=== PATIENT | female | born 1955 | race Hispanic/Latino ===

== ENCOUNTER 2017-06-13 10:36 | Outpatient (CLI) | payer BC ==
--- NOTE | 2017-06-14 14:26 | MMO ---
BILATERAL MAMMOGRAMS: DATE: 06/13/17 HISTORY: Screening mammography. COMPARISON: 05/02/07. FINDINGS: Scattered fibroglandular densities are again demonstrated. No dominant mass or suspicious calcificati ons. The study was evaluated with the assistance of computer-aided detection. IMPRESSION: BIRADS 1: Negative Suggest routine follow-up. POS: ESTER
== END 2017-06-13 10:37 | disposition home or self-care (01) ==
LOC: SCSMAMMO 10:36
PROVIDERS: ATTEND Family Medicine
DX: Z12.31 Encounter for screening mammogram for malignant neoplasm of breast (principal)
CPT/HCPCS: 77067

== ENCOUNTER 2018-09-21 13:45 | Outpatient (CLI) | payer MEDICARE ==
--- NOTE | 2018-09-21 16:09 | BD ---
Exam: DEXA Bone Density 09/21/18 COMPARISON: None. HISTORY: 63-year-old postmenopausal female for screening. FINDINGS: Lumbar Spine: BMD (g/cm2) T-SCORE L1 0.838 -1.4 L2 0.836 -1.7 L3 0.770 -2.9 L4 0.735 -2.0 L1-L4 0.796 -2.3 Left Femoral Neck: 0.617 -2.1 Total proximal left Femur: 0.733 -1.7 Impression: Osteopenia. This patient has a ten year WHO fracture risk for a major osteoporotic fracture of 11% an d a hip fracture of 1.6%. POS: TPC
== END 2018-09-21 13:46 | disposition home or self-care (01) ==
LOC: BICMAMMO 13:45
PROVIDERS: ATTEND Internal Medicine
DX: Z13.820 Encounter for screening for osteoporosis (principal); M81.0 Age-related osteoporosis without current pathological fracture; M85.852 Other specified disorders of bone density and structure, left thigh
CPT/HCPCS: 77080

== ENCOUNTER 2020-12-06 17:45 | Emergency (ER) | payer MEDICARE, MEDICAID ==
[2020-12-06] MEDS ORDERED: HYDROcodone/Acetaminophen 10/325 mg Tablet ONE (19:24)
== END 2020-12-06 21:04 | disposition home or self-care (01) ==
LOC: ERS 17:45
DX: S39.012A Strain of muscle, fascia and tendon of lower back, initial encounter (principal); M62.830 Muscle spasm of back; E11.9 Type 2 diabetes mellitus without complications; I10 Essential (primary) hypertension; Z79.84 Long term (current) use of oral hypoglycemic drugs; Z79.899 Other long term (current) drug therapy
CPT/HCPCS: 72131

== ENCOUNTER 2021-02-18 10:59 | Observation (INO) | payer MEDICARE ==
[2021-02-18 12:50] LABS: #Basophils 0.1 thou/uL (0.0-0.2); #Eosinphils 0.2 thou/uL (0.0-0.7); #Lymphocytes 2.3 thou/uL (1.20-3.40); #Monocytes 0.5 thou/uL (0.11-0.59); #Neutrophils 3.3 thou/uL (1.40-6.50); %Basophils 0.9 % (0.0-1.0); %Eosinophils 3.4 % (0.0-10.0); %Lymphocytes 36.1 % (21.0-51.0); %Monocytes 7.3 % (0.0-10.0); %Neutrophils 52.3 % (42.0-75.0); Hemoglobin 10.9 g/dL (12.0-16.0); Mean Corpuscular HGB CONC 32.7 g/dL (32.0-36.0); Mean Corpuscular Hemoglobin 28.2 pg (27.0-31.0); Mean Corpuscular Volume 86.5 fL (78.0-98.0); Mean Platelet Volume 7.9 fL (7.4-10.4); Platelet Count 368 thou/uL (130-400); RBC Distribution Width 14.4 % (11.5-14.5); Red Blood Cell (RBC) Count 3.85 mill/uL (4.20-5.40); White Blood Cell (WBC) Count 6.3 thou/uL (4.8-10.8)
[2021-02-18 13:11] LABS: ALT (SGPT) 10 U/L (8-55); AST (SGOT) 18 U/L (5-34); Albumin 3.7 g/dL (3.4-4.8); Alkaline Phosphatase 77 U/L (40-110); Anion Gap 8 mmol/L (10-20); BUN (Urea Nitrogen) 17 mg/dL (9.8-20.1); Bilirubin, Total 0.3 mg/dL (0.2-1.2); Calc. Creatinine Clearance 0 mL/min (70-130); Calcium 9.5 mg/dL (7.8-10.44); Carbon Dioxide 29 mmol/L (23-31); Chloride 102 mmol/L (98-107); Globulin 3.2 g/dL (2.4-3.5); Glucose 188 mg/dL (80-115); Potassium 4.1 mmol/L (3.5-5.1); Protein, Total 6.9 g/dL (5.8-8.1); Sodium 135 mmol/L (136-145)
[2021-02-18 14:03] LABS: Bilirubin Negative (Negative); Blood, Urine Negative (Negative); Clarity Clear (Clear); Glucose, Urine (Dipstick) Normal (Negative); Ketone, Urine Negative (Negative); Leukocyte Negative Leu/uL (Negative); Nitrite Negative (Negative); Protein, Urine (Dipstick) Negative (Neg-Trace); Specific Gravity, Urine 1.007 (1.002-1.036); Urobilinogen Normal mg/dL (Less than 2)
[2021-02-18] MEDS ORDERED: Aspirin Chewable 81 MG TAB ONE (15:52)
[2021-02-18 16:19] LABS: Troponin I Less than 0.010 ng/mL (< 0.028)
[2021-02-18] MEDS ORDERED: hydrALAZINE 20 MG/ML VIAL SLOW IVP PRN (17:01)
[2021-02-18] MEDS ORDERED: Senokot S 8.6-50 MG TAB PO PRN (17:19)
[2021-02-18] MEDS ORDERED: HYDROcodone/Acetaminophen 7.5/325 mg Tablet PO PRN (17:19)
[2021-02-18] MEDS ORDERED: HYDROcodone/Acetaminophen 5/325 mg Tablet PO PRN (17:19)
[2021-02-18] MEDS ORDERED: Bisacodyl 5 MG TAB PO PRN (17:19)
[2021-02-18] MEDS ORDERED: Acetaminophen 325 MG TAB PO PRN (17:19)
[2021-02-18] MEDS ORDERED: hydrALAZINE 20 MG/ML VIAL ONE (17:30)
[2021-02-18] MEDS ORDERED: Enoxaparin Sodium 40 MG/0.4 ML SYRINGE SC SCH (17:30)
[2021-02-18] MEDS ORDERED: Losartan 25 MG TAB PO SCH (17:45)
[2021-02-18] MEDS ORDERED: Nitroglycerin 0.4 MG TAB (25 Tab Bottle) SL PRN (17:50)
[2021-02-18] MEDS ORDERED: Dextrose 5% in Water 1,000 ML IV PRN (18:03)
[2021-02-18] MEDS ORDERED: HumaLOG 300 UNITS/3 ML VIAL SC PRN ×2 (18:03)
[2021-02-18] MEDS ORDERED: Dextrose 50% Abboject 50 ML SYRINGE SLOW IVP PRN (18:03)
[2021-02-18 18:39] LABS: SARS-CoV-2 NAA Rapid Test Not Detected (NotDetected)
[2021-02-18] MEDS ORDERED: Enoxaparin Sodium 40 MG/0.4 ML SYRINGE ONE (19:26)
[2021-02-18 19:47] LABS: Troponin I 0.012 ng/mL (< 0.028)
[2021-02-18] MEDS ORDERED: cloNIDine 0.1 MG TAB PO SCH (21:15)
[2021-02-18] MEDS: Famotidine/PF 20 mg/2ml Vial SLOW IVP SCH (21:30)
[2021-02-19 06:13] LABS: #Basophils 0.1 thou/uL (0.0-0.2); #Eosinphils 0.2 thou/uL (0.0-0.7); #Lymphocytes 2.6 thou/uL (1.20-3.40); #Monocytes 0.5 thou/uL (0.11-0.59); #Neutrophils 2.6 thou/uL (1.40-6.50); %Basophils 1.1 % (0.0-1.0); %Eosinophils 3.5 % (0.0-10.0); %Lymphocytes 43.3 % (21.0-51.0); %Monocytes 8.6 % (0.0-10.0); %Neutrophils 43.5 % (42.0-75.0); Hemoglobin 10.8 g/dL (12.0-16.0); Mean Corpuscular HGB CONC 33.2 g/dL (32.0-36.0); Mean Corpuscular Hemoglobin 28.9 pg (27.0-31.0); Mean Corpuscular Volume 87.1 fL (78.0-98.0); Mean Platelet Volume 7.8 fL (7.4-10.4); Platelet Count 342 thou/uL (130-400); RBC Distribution Width 14.6 % (11.5-14.5); Red Blood Cell (RBC) Count 3.73 mill/uL (4.20-5.40)
[2021-02-19 06:37] LABS: ALT (SGPT) 8 U/L (8-55); AST (SGOT) 14 U/L (5-34); Albumin 3.5 g/dL (3.4-4.8); Alkaline Phosphatase 66 U/L (40-110); Anion Gap 9 mmol/L (10-20); BUN (Urea Nitrogen) 17 mg/dL (9.8-20.1); Bilirubin, Total 0.4 mg/dL (0.2-1.2); Calc. Creatinine Clearance 83 mL/min (70-130); Calcium 9.3 mg/dL (7.8-10.44); Carbon Dioxide 27 mmol/L (23-31); Cardiac Risk 3.7 (Less than 4.5); Chloride 106 mmol/L (98-107); Cholesterol 184 mg/dl (< 200 Desired); Globulin 2.6 g/dL (2.4-3.5); Glucose 164 mg/dL (80-115); HDL Cholesterol 50 mg/dL (>60 Neg Risk); LDL Cholesterol, Calculated 117 mg/dL; Potassium 4.2 mmol/L (3.5-5.1); Protein, Total 6.1 g/dL (5.8-8.1); Sodium 138 mmol/L (136-145); Triglycerides 86 mg/dL (Less than 150)
[2021-02-19 06:41] LABS: Hemoglobin A1c 8.2 % (4.0-6.0)
[2021-02-19] MEDS ORDERED: FLU VACC QS2021-22(65YR UP)/PF 240 MCG/0.7 ML SYRINGE IM ONE (09:00)
[2021-02-19] MEDS: Enoxaparin Sodium 40 MG/0.4 ML SYRINGE SC SCH (10:00)
[2021-02-19] MEDS: Famotidine/PF 20 mg/2ml Vial SLOW IVP SCH ×2 (10:00→10:03)
[2021-02-19] MEDS: Hydroxychloroquine Sulfate 200 MG TAB PO SCH (10:04)
[2021-02-19] MEDS: HumuLIN 70/30 (300 UNITS/3 ML VIAL) SC SCH (10:06)
[2021-02-19] MEDS ORDERED: Famotidine/PF 20 mg/2ml Vial SLOW IVP SCH (23:00)
[2021-02-20 08:39] VITALS: BMI 31.6
[2021-02-20] MEDS: Famotidine/PF 20 mg/2ml Vial SLOW IVP SCH (09:10)
[2021-02-20] MEDS: HumuLIN 70/30 (300 UNITS/3 ML VIAL) SC SCH (09:11)
[2021-02-20] MEDS: Enoxaparin Sodium 40 MG/0.4 ML SYRINGE SC SCH (09:11)
[2021-02-20] MEDS: Hydroxychloroquine Sulfate 200 MG TAB PO SCH (09:12)
[2021-02-20 11:56] VITALS: BP 142/61; TEMP 98.3
== END 2021-02-20 13:25 | disposition home or self-care (01) ==
LOC: ERS 10:59 → ERHOLD 16:48 → 2NO 20:04
PROVIDERS: ADMIT Internal Medicine; ATTEND Internal Medicine
DX: R07.81 Pleurodynia (principal); I10 Essential (primary) hypertension; E11.65 Type 2 diabetes mellitus with hyperglycemia; R51.9 Headache, unspecified; R42 Dizziness and giddiness; Z20.822 Contact with and (suspected) exposure to COVID-19; Z79.4 Long term (current) use of insulin; Z79.84 Long term (current) use of oral hypoglycemic drugs; Z79.899 Other long term (current) drug therapy; Z88.6 Allergy status to analgesic agent
CPT/HCPCS: 70450; 71045; 80053 ×2; 80061; 81003; 82962 ×3; 83036; 84484 ×2; 85025 ×2; 93005; 93306; 96372 ×3; 96374; 96375; 96376; 99285; G0378 ×4; U0002; 36415; 36416; J0360; J1650; J1815; S0028

== ENCOUNTER 2022-12-13 03:58 | Inpatient (IN) | payer OTHER ==
[2022-12-13 04:40] LABS: #Eosinphils 0.3 thou/uL (0.0-0.7); #Monocytes 0.8 thou/uL (0.11-0.59); #Neutrophils 6.9 thou/uL (1.40-6.50); %Basophils 0.4 % (0.0-1.0); %Eosinophils 2.6 % (0.0-10.0); %Lymphocytes 26.8 % (21.0-51.0); %Monocytes 7.4 % (0.0-10.0); %Neutrophils 62.3 % (42.0-75.0); Hematocrit 32.7 % (36.0-47.0); Hemoglobin 10.9 g/dL (12.0-16.0); Mean Corpuscular HGB CONC 33.3 g/dL (32.0-36.0); Mean Corpuscular Hemoglobin 29.7 pg (27.0-31.0); Mean Corpuscular Volume 89.1 fl (78.0-98.0); Mean Platelet Volume 10.6 fL (7.4-10.4); Platelet Count 390 10x3/uL (130-400); RBC Distribution Width 13.8 % (11.5-14.5); Red Blood Cell (RBC) Count 3.67 mill/uL (4.20-5.40)
[2022-12-13] MEDS ORDERED: Morphine 4 MG/ML VIAL ONE (04:41)
[2022-12-13 04:54] LABS: Prothrombin Time 13.5 sec (12.0-14.7)
[2022-12-13 04:55] LABS: PTT 34.1 sec (22.9-36.1)
[2022-12-13 05:16] LABS: ALT (SGPT) 9 U/L (8-55); AST (SGOT) 17 U/L (5-34); Albumin 4.4 g/dL (3.4-4.8); Alkaline Phosphatase 90 U/L (40-110); Anion Gap 14 mmol/L (10-20); BUN (Urea Nitrogen) 19 mg/dL (9.8-20.1); Bilirubin, Total 0.4 mg/dL (0.2-1.2); Calc. Creatinine Clearance 0 mL/min (70-130); Calcium 9.2 mg/dL (7.8-10.44); Carbon Dioxide 26 mmol/L (23-31); Chloride 99 mmol/L (98-107); Estimated GFR 76; Globulin 2.7 g/dL (2.4-3.5); Glucose 162 mg/dL (80-115); Potassium 4.6 mmol/L (3.5-5.1); Protein, Total 7.1 g/dL (5.8-8.1); Sodium 134 mmol/L (136-145)
[2022-12-13 05:21] LABS: Troponin I 0.015 ng/mL (< 0.028)
[2022-12-13] MEDS ORDERED: Insulin Regular 300 UNITS/3 ML VIAL SC PRN (09:19)
[2022-12-13] MEDS ORDERED: Glucagon 1 MG/ML KIT IM PRN (09:19)
[2022-12-13] MEDS ORDERED: Dextrose 50% Abboject 50 ML SYRINGE SLOW IVP PRN (09:19)
[2022-12-13] MEDS ORDERED: Dextrose 5% in Water 1,000 ML IV PRN (09:19)
[2022-12-13] MEDS ORDERED: Nitroglycerin 0.4 MG TAB (25 Tab Bottle) SL PRN (09:20)
[2022-12-13] MEDS ORDERED: Ondansetron PF 4 MG/2 ML Vial IVP PRN (09:21)
[2022-12-13] MEDS ORDERED: Ondansetron ODT 4 MG TAB PO PRN (09:21)
[2022-12-13] MEDS ORDERED: Calcium Carbonate 500 MG ChewTAB PO PRN (09:21)
[2022-12-13] MEDS ORDERED: Sodium Chloride 0.9% 500 ML IV SCH (09:30)
[2022-12-13] MEDS ORDERED: Regadenoson 0.4 MG/5 ML SYRINGE ONE (09:57)
[2022-12-13 11:31] LABS: Troponin I Less than 0.010 ng/mL (< 0.028)
[2022-12-13] MEDS ORDERED: Ketorolac Tromethamine 30 MG/ML VIAL IVP SCH (12:00)
[2022-12-13] MEDS ORDERED: Iopamidol 370 76% 100 ML VIAL ONE (13:22)
[2022-12-13] MEDS ORDERED: Ketorolac Tromethamine 30 MG/ML VIAL ONE (14:10)
[2022-12-13 14:30] VITALS: BMI 31.2
[2022-12-13] MEDS: Insulin Regular 300 UNITS/3 ML VIAL SC PRN (18:13)
[2022-12-13] MEDS ORDERED: Losartan 25 MG TAB PO SCH (20:00)
[2022-12-13] MEDS ORDERED: Atenolol 50 MG TAB PO SCH (20:00)
[2022-12-13] MEDS ORDERED: Famotidine 20 MG TAB PO SCH (21:00)
[2022-12-14] MEDS: Cyclobenzaprine 10 MG TAB PO PRN ×2 (00:55→14:43)
[2022-12-14] MEDS ORDERED: Amlodipine 5 MG TAB PO SCH (09:00)
[2022-12-14] MEDS ORDERED: Aspirin 325 mg Enteric Coated Tablet PO SCH (09:00)
[2022-12-14] MEDS ORDERED: Atenolol 50 MG TAB PO SCH (09:00)
[2022-12-14] MEDS: Aspirin 81 mg Enteric Coated Tablet PO SCH (09:00)
[2022-12-14] MEDS: HumuLIN 70/30 100 Unit/ ml 10 ml Vial SC SCH (09:00)
[2022-12-14] MEDS: Famotidine 20 MG TAB PO SCH (09:00)
[2022-12-14] MEDS ORDERED: Losartan 25 MG TAB PO SCH (09:00)
[2022-12-14] MEDS ORDERED: Iopamidol 370 76% 100 ML VIAL ONE (09:20)
[2022-12-14] MEDS ORDERED: Communication Order-Pharmacy FS SCH (11:45)
[2022-12-14] MEDS ORDERED: fentaNYL 50 mcg/mL 1 mL Vial ONE (11:49)
[2022-12-14] MEDS ORDERED: Nitroglycerin 50 MG/250 ML BOT 0 ML ONE (11:50)
[2022-12-14] MEDS ORDERED: Midazolam HCl 2 mg/2 ml Vial ONE (11:50)
[2022-12-14] MEDS ORDERED: Lidocaine 1% (PF) 30 ML VIAL ONE (11:50)
[2022-12-14] MEDS ORDERED: Heparin 10,000 UNITS/ 10 ML VIAL ONE (11:50)
[2022-12-14] MEDS: Insulin Regular 300 UNITS/3 ML VIAL SC PRN (17:44)
[2022-12-14] MEDS: Ketorolac Tromethamine 10 MG TAB PO PRN (18:27)
[2022-12-14] MEDS: Atenolol 50 MG TAB PO SCH (20:23)
[2022-12-14] MEDS: Atorvastatin Calcium 40 MG TAB PO SCH (20:23)
[2022-12-14] MEDS: Losartan 25 MG TAB PO SCH (20:23)
[2022-12-15] MEDS ORDERED: Amlodipine 10 MG TAB PO SCH (09:00)
[2022-12-15] MEDS: Insulin Regular 300 UNITS/3 ML VIAL SC PRN ×3 (09:20→17:33)
[2022-12-15] MEDS: Aspirin 81 mg Enteric Coated Tablet PO SCH (09:22)
[2022-12-15] MEDS: Famotidine 20 MG TAB PO SCH (09:22)
[2022-12-15] MEDS: HumuLIN 70/30 100 Unit/ ml 10 ml Vial SC SCH (10:17)
[2022-12-15] MEDS: Ketorolac Tromethamine 10 MG TAB PO PRN (10:26)
[2022-12-15] MEDS: Atorvastatin Calcium 40 MG TAB PO SCH (20:09)
[2022-12-15] MEDS: Losartan 25 MG TAB PO SCH (20:09)
[2022-12-15] MEDS: Atenolol 50 MG TAB PO SCH (20:10)
[2022-12-16] MEDS ORDERED: CEFAZOLIN 2 GM in Sodium Chloride 0.9% 100 ML IVPB SCH (06:00)
[2022-12-16] MEDS ORDERED: Albumin 5% 500 ML ONE (06:38)
[2022-12-16] MEDS ORDERED: Heparin 10,000 UNITS/1 ML VIAL 30,000 UNITS in Sodium Chloride 0.9% 1,000 ML FS SCH (06:45)
[2022-12-16] MEDS ORDERED: Midazolam HCl 2 mg/2 ml Vial ONE (08:21)
[2022-12-16] MEDS ORDERED: Fentanyl 250 MCG/5 ML VIAL ONE (08:21)
[2022-12-16] MEDS ORDERED: CEFAZOLIN 2 GM VIAL ONE (08:22)
[2022-12-16] MEDS ORDERED: Sodium Chloride 0.9% 100 ML ONE (08:23)
[2022-12-16] MEDS ORDERED: Heparin 5,000 UNITS/ML VIAL ONE (08:30)
[2022-12-16] MEDS ORDERED: Calcium Chloride 1 GM/10 ML Abboject SYRINGE ONE (08:30)
[2022-12-16] MEDS ORDERED: Vancomycin 1 GM VIAL ONE (08:30)
[2022-12-16] MEDS ORDERED: Thrombin 5000 UNITS/5 ML VIAL ONE (08:30)
[2022-12-16] MEDS ORDERED: PROPOFOL 200 MG/20 ML VIAL ONE (08:30)
[2022-12-16] MEDS ORDERED: Albumin 25% 25 GM/100 ML BOT ONE (08:30)
[2022-12-16] MEDS ORDERED: Mannitol 12.5 GM/50 ML ONE (08:30)
[2022-12-16] MEDS ORDERED: Cardioplegic Soln 1,000 ML BAG ONE (08:30)
[2022-12-16] MEDS ORDERED: Papaverine 60 MG/2 ML VIAL ONE (08:30)
[2022-12-16] MEDS ORDERED: Aminocaproic Acid 5 GM/20 ML VIAL ONE (08:30)
[2022-12-16] MEDS ORDERED: Vecuronium 10 MG VIAL ONE (08:30)
[2022-12-16] MEDS ORDERED: Sodium Bicarb 50 MEQ/50 ML VIAL ONE (08:30)
[2022-12-16] MEDS ORDERED: Protamine Sulfate 250 MG/25 ML VIAL ONE (08:30)
[2022-12-16] MEDS ORDERED: Heparin 30,000 units/30 ml VIAL ONE (08:30)
[2022-12-16] MEDS ORDERED: Insulin Regular 300 UNITS/3 ML VIAL ONE (09:40)
[2022-12-16 12:20] LABS: Actual Bicarbonate (HCO3a) 22.8 mEq/L (22-28); Base Excess (BEa) -0.9 mEq/L (-2.0 to +3.0); Calcium, Ionized (arterial) 1.13 mmol/L (1.12-1.30); Carboxyhemoglobin (COHb) 0.3 gm% (0.0-3.0); Hematocrit-ABG 29 % (36.0-47.0); Hemoglobin (Hb) 9.7 g/dL (12.0-16.0); O2 Tension (PaO2), arterial 95.1 mmHg (> 80.0); Potassium - ABG Lab 3.88 mmol/L (3.70-5.30); pH, Arterial 7.445 (7.35-7.45)
[2022-12-16] MEDS ORDERED: Ipratropium/Albuterol 3 ML NEB NEB PRN (12:22)
[2022-12-16] MEDS ORDERED: Bisacodyl 5 MG TAB PO PRN (12:22)
[2022-12-16] MEDS ORDERED: fentaNYL 50 mcg/mL 1 mL Vial SLOW IVP PRN (12:22)
[2022-12-16] MEDS ORDERED: HYDROcodone/Acetaminophen 5/325 mg Tablet PO PRN (12:22)
[2022-12-16] MEDS ORDERED: hydrALAZINE 20 MG/ML VIAL SLOW IVP PRN (12:22)
[2022-12-16] MEDS ORDERED: NOREPINEPHRINE 8 MG/250 ML-D5W 250 ML IVPB PRN (12:22)
[2022-12-16] MEDS ORDERED: Hetastarch 6% 500 ML 500 ML IVPB PRN (12:22)
[2022-12-16] MEDS ORDERED: niCARdipine 25 MG in Sodium Chloride 0.9% 250 ML 250 ML IVPB PRN (12:22)
[2022-12-16] MEDS ORDERED: Post-Op Insulin Drip Protocol IVPB ONE (12:22)
[2022-12-16] MEDS ORDERED: Bisacodyl 10 MG SUPP PR PRN (12:22)
[2022-12-16] MEDS ORDERED: Ondansetron PF 4 MG/2 ML Vial IVP PRN (12:22)
[2022-12-16] MEDS ORDERED: Guaifenesin DM 100-10/5 ML UDCUP PO PRN (12:22)
[2022-12-16] MEDS ORDERED: DOPamine 400 MG/D5W 250 ML 250 ML IVPB PRN (12:22)
[2022-12-16] MEDS ORDERED: Potassium Chloride 20 MEQ/100 ML PREMIX BAG IVPB PRN (12:22)
[2022-12-16] MEDS ORDERED: Nitroglycerin 50 MG/250 ML BOT 250 ML IVPB PRN (12:22)
[2022-12-16] MEDS ORDERED: Mag-Al 1200 mg/1200 mg/30 ML UDCUP PO PRN (12:22)
[2022-12-16] MEDS ORDERED: Acetaminophen 325 MG TAB PO PRN (12:22)
[2022-12-16 12:23] LABS: Puncture Site Arterial Line
[2022-12-16 12:40] LABS: #Eosinphils 0.2 thou/uL (0.0-0.7); #Monocytes 0.6 thou/uL (0.11-0.59); #Neutrophils 10.1 thou/uL (1.40-6.50); %Basophils 0.2 % (0.0-1.0); %Eosinophils 1.7 % (0.0-10.0); %Monocytes 4.6 % (0.0-10.0); Hematocrit 28.4 % (36.0-47.0); Hemoglobin 9.2 g/dL (12.0-16.0); Mean Corpuscular HGB CONC 32.4 g/dL (32.0-36.0); Mean Corpuscular Hemoglobin 28.8 pg (27.0-31.0); Mean Platelet Volume 10.6 fL (7.4-10.4); Platelet Count 248 10x3/uL (130-400); RBC Distribution Width 13.8 % (11.5-14.5); Red Blood Cell (RBC) Count 3.19 mill/uL (4.20-5.40)
[2022-12-16] MEDS: Lactated Ringer's 1,000 ML IV SCH (12:44)
[2022-12-16] MEDS: Morphine 2 MG/ML VIAL SLOW IVP PRN ×2 (12:44→16:35)
[2022-12-16] MEDS ORDERED: HUMULIN R 100 UNITS in Sodium Chloride 0.9% 100 ML IVPB SCH (12:45)
[2022-12-16] MEDS ORDERED: Glucagon 1 MG/ML KIT SC PRN (12:45)
[2022-12-16] MEDS ORDERED: Dextrose 5% in Water 1,000 ML IV PRN (12:45)
[2022-12-16] MEDS ORDERED: Insulin Regular 300 UNITS/3 ML VIAL SC PRN (12:45)
[2022-12-16] MEDS ORDERED: Dextrose 50% Abboject 50 ML SYRINGE SLOW IVP PRN (12:45)
[2022-12-16 12:55] LABS: INR-International Normal Ratio 1.3; PTT 34.4 sec (22.9-36.1)
[2022-12-16] MEDS: fentaNYL 50 mcg/mL 1 mL Vial SLOW IVP PRN ×2 (12:58→20:33)
[2022-12-16 13:04] LABS: Anion Gap 12 mmol/L (10-20); BUN (Urea Nitrogen) 15 mg/dL (9.8-20.1); Calc. Creatinine Clearance 91 mL/min (70-130); Carbon Dioxide 22 mmol/L (23-31); Chloride 109 mmol/L (98-107); Estimated GFR 92; Glucose 78 mg/dL (80-115); Potassium 3.9 mmol/L (3.5-5.1); Sodium 139 mmol/L (136-145)
[2022-12-16] MEDS: CEFAZOLIN 2 GM in Sodium Chloride 0.9% 100 ML IVPB SCH ×2 (15:26→23:28)
[2022-12-16 16:06] LABS: Actual Bicarbonate (HCO3a) 21.9 mEq/L (22-28); Base Excess (BEa) -3.1 mEq/L (-2.0 to +3.0); CO2 Tension 38.6 mmHg (35.0-45.0); Calcium, Ionized (arterial) 1.15 mmol/L (1.12-1.30); Carboxyhemoglobin (COHb) 0.1 gm% (0.0-3.0); Hematocrit-ABG 32 % (36.0-47.0); Potassium - ABG Lab 3.95 mmol/L (3.70-5.30); pH, Arterial 7.371 (7.35-7.45)
[2022-12-16 16:13] LABS: Puncture Site Arterial Line
[2022-12-16] MEDS: Ketorolac Tromethamine 30 MG/ML VIAL IVP SCH ×2 (17:07→23:27)
[2022-12-16 18:29] LABS: Hematocrit 31.5 % (36.0-47.0)
[2022-12-16 18:51] LABS: Potassium 4.4 mmol/L (3.5-5.1)
[2022-12-16] MEDS: Famotidine/PF 20 mg/2ml Vial SLOW IVP SCH (20:16)
[2022-12-16] MEDS: HYDROcodone/Acetaminophen 5/325 mg Tablet PO PRN (20:17)
[2022-12-16] MEDS ORDERED: Atorvastatin Calcium 20 MG TAB PO SCH (21:00)
[2022-12-17] MEDS: Lactated Ringer's 1,000 ML IV SCH (01:05)
[2022-12-17 04:35] LABS: #Eosinphils 0.2 thou/uL (0.0-0.7); #Monocytes 1.2 thou/uL (0.11-0.59); #Neutrophils 10.7 thou/uL (1.40-6.50); %Basophils 0.3 % (0.0-1.0); %Eosinophils 1.3 % (0.0-10.0); %Lymphocytes 13.4 % (21.0-51.0); %Monocytes 8.4 % (0.0-10.0); %Neutrophils 76.1 % (42.0-75.0); Hemoglobin 9.1 g/dL (12.0-16.0); Mean Corpuscular HGB CONC 32.5 g/dL (32.0-36.0); Mean Corpuscular Hemoglobin 29.3 pg (27.0-31.0); Mean Platelet Volume 10.9 fL (7.4-10.4); Platelet Count 298 10x3/uL (130-400); RBC Distribution Width 14.7 % (11.5-14.5); Red Blood Cell (RBC) Count 3.11 mill/uL (4.20-5.40)
[2022-12-17 05:02] LABS: Anion Gap 12 mmol/L (10-20); BUN (Urea Nitrogen) 17 mg/dL (9.8-20.1); Calc. Creatinine Clearance 77 mL/min (70-130); Calcium 8.1 mg/dL (7.8-10.44); Carbon Dioxide 22 mmol/L (23-31); Chloride 109 mmol/L (98-107); Estimated GFR 75; Glucose 93 mg/dL (80-115); Potassium 4.1 mmol/L (3.5-5.1); Sodium 139 mmol/L (136-145)
[2022-12-17] MEDS: Ketorolac Tromethamine 30 MG/ML VIAL IVP SCH ×4 (06:04→23:43)
[2022-12-17] MEDS ORDERED: Atorvastatin Calcium 20 MG TAB PO SCH (07:36)
[2022-12-17] MEDS: CEFAZOLIN 2 GM in Sodium Chloride 0.9% 100 ML IVPB SCH (07:38)
[2022-12-17] MEDS: Aspirin Chewable 81 MG TAB PO SCH (07:39)
[2022-12-17] MEDS: Famotidine/PF 20 mg/2ml Vial SLOW IVP SCH (07:40)
[2022-12-17] MEDS ORDERED: Dextrose 5% in Water 1,000 ML IV PRN (07:40)
[2022-12-17] MEDS: Polyethylene Glycol 3350 17 GM Packet PO SCH (07:40)
[2022-12-17] MEDS ORDERED: Dextrose 50% Abboject 50 ML SYRINGE SLOW IVP PRN (07:40)
[2022-12-17] MEDS ORDERED: Glucagon 1 MG/ML KIT IM PRN (07:40)
[2022-12-17] MEDS: HumuLIN 70/30 100 Unit/ ml 10 ml Vial SC SCH (09:56)
[2022-12-17] MEDS: glipiZIDE 5 MG TAB PO SCH (11:33)
[2022-12-17] MEDS: HumaLOG 300 UNITS/3 ML VIAL SC PRN ×2 (11:43→16:41)
[2022-12-17] MEDS ORDERED: Insulin Glargine 30 UNITS/0.3 ML VIAL SC PRN (12:33)
[2022-12-17] MEDS: Atorvastatin Calcium 40 MG TAB PO SCH (21:02)
[2022-12-17] MEDS: Famotidine 20 MG TAB PO SCH (21:03)
[2022-12-18] MEDS: Ketorolac Tromethamine 30 MG/ML VIAL IVP SCH ×3 (06:28→17:26)
[2022-12-18] MEDS: HumaLOG 300 UNITS/3 ML VIAL SC PRN (06:38)
[2022-12-18] MEDS ORDERED: Furosemide 20 MG TAB PO SCH (09:00)
[2022-12-18] MEDS: Famotidine 20 MG TAB PO SCH ×2 (09:20→21:05)
[2022-12-18] MEDS: Metoprolol Tartrate 25 MG TAB PO SCH ×2 (09:20→21:06)
[2022-12-18] MEDS: Aspirin Chewable 81 MG TAB PO SCH (09:20)
[2022-12-18] MEDS: Polyethylene Glycol 3350 17 GM Packet PO SCH (09:21)
[2022-12-18] MEDS: HumuLIN 70/30 100 Unit/ ml 10 ml Vial SC SCH (09:21)
[2022-12-18] MEDS ORDERED: diphenhydrAMINE 25 MG CAP PO PRN (10:15)
[2022-12-18] MEDS ORDERED: Artificial Tear Sol 15 ML BOT EA EYE PRN (10:15)
[2022-12-18] MEDS ORDERED: Nitroglycerin 0.4 MG TAB (25 Tab Bottle) SL PRN (10:15)
[2022-12-18] MEDS ORDERED: Guaifenesin DM 100-10/5 ML UDCUP PO PRN (10:15)
[2022-12-18] MEDS ORDERED: Mineral Oil ENEMA PR PRN (10:15)
[2022-12-18] MEDS ORDERED: Bisacodyl 5 MG TAB PO PRN (10:15)
[2022-12-18] MEDS ORDERED: Zolpidem Tartrate 5 MG TAB PO PRN (10:15)
[2022-12-18] MEDS ORDERED: Bisacodyl 10 MG SUPP PR PRN (10:15)
[2022-12-18] MEDS ORDERED: Milk Of Magnesia 30 ML UDCUP PO PRN (10:15)
[2022-12-18] MEDS ORDERED: Mag-Al 1200 mg/1200 mg/30 ML UDCUP PO PRN (10:15)
[2022-12-18] MEDS: Potassium Chloride 10 MEQ TAB PO SCH (10:57)
[2022-12-18] MEDS: glipiZIDE 5 MG TAB PO SCH (11:49)
[2022-12-18] MEDS: Atorvastatin Calcium 40 MG TAB PO SCH (21:05)
[2022-12-19] MEDS: Ketorolac Tromethamine 30 MG/ML VIAL IVP SCH ×3 (00:22→05:38)
[2022-12-19] MEDS ORDERED: Losartan 25 MG TAB PO SCH (09:00)
[2022-12-19] MEDS: Furosemide 40 MG TAB PO SCH (09:22)
[2022-12-19] MEDS: Polyethylene Glycol 3350 17 GM Packet PO SCH (09:22)
[2022-12-19] MEDS: Potassium Chloride 10 MEQ TAB PO SCH (09:22)
[2022-12-19] MEDS: Aspirin Chewable 81 MG TAB PO SCH (09:23)
[2022-12-19] MEDS: Losartan 25 MG TAB PO SCH (09:23)
[2022-12-19] MEDS: Famotidine 20 MG TAB PO SCH ×2 (09:23→20:49)
[2022-12-19] MEDS: HumuLIN 70/30 100 Unit/ ml 10 ml Vial SC SCH (09:28)
[2022-12-19] MEDS: glipiZIDE 5 MG TAB PO SCH (12:43)
[2022-12-19] MEDS: HumaLOG 300 UNITS/3 ML VIAL SC PRN (15:57)
[2022-12-19] MEDS ORDERED: Ketorolac Tromethamine 30 MG/ML VIAL IVP SCH (20:45)
[2022-12-19] MEDS: Atorvastatin Calcium 40 MG TAB PO SCH (20:49)
[2022-12-20 04:16] LABS: #Eosinphils 0.5 thou/uL (0.0-0.7); #Monocytes 0.8 thou/uL (0.11-0.59); #Neutrophils 6.4 thou/uL (1.40-6.50); %Basophils 0.4 % (0.0-1.0); %Eosinophils 4.7 % (0.0-10.0); %Lymphocytes 22.7 % (21.0-51.0); %Monocytes 7.6 % (0.0-10.0); %Neutrophils 63.8 % (42.0-75.0); Hematocrit 29.8 % (36.0-47.0); Hemoglobin 9.6 g/dL (12.0-16.0); Mean Corpuscular HGB CONC 32.2 g/dL (32.0-36.0); Mean Corpuscular Hemoglobin 29.4 pg (27.0-31.0); Mean Corpuscular Volume 91.1 fl (78.0-98.0); Mean Platelet Volume 10.6 fL (7.4-10.4); Platelet Count 368 10x3/uL (130-400); RBC Distribution Width 13.8 % (11.5-14.5); Red Blood Cell (RBC) Count 3.27 mill/uL (4.20-5.40); White Blood Cell (WBC) Count 10.1 10x3/uL (4.8-10.8)
[2022-12-20 04:49] LABS: Anion Gap 15 mmol/L (10-20); BUN (Urea Nitrogen) 12 mg/dL (9.8-20.1); Calc. Creatinine Clearance 82 mL/min (70-130); Calcium 8.4 mg/dL (7.8-10.44); Carbon Dioxide 23 mmol/L (23-31); Chloride 101 mmol/L (98-107); Estimated GFR 81; Glucose 145 mg/dL (80-115); Sodium 135 mmol/L (136-145)
[2022-12-20 08:30] VITALS: BP 189/81; TEMP 99.4
[2022-12-20] MEDS: Polyethylene Glycol 3350 17 GM Packet PO SCH (08:50)
[2022-12-20] MEDS: Losartan 25 MG TAB PO SCH (08:51)
[2022-12-20] MEDS: Aspirin Chewable 81 MG TAB PO SCH (08:51)
[2022-12-20] MEDS: HYDROcodone/Acetaminophen 5/325 mg Tablet PO PRN (08:51)
[2022-12-20] MEDS: Famotidine 20 MG TAB PO SCH (08:52)
[2022-12-20] MEDS: Furosemide 40 MG TAB PO SCH (08:53)
[2022-12-20] MEDS: Potassium Chloride 10 MEQ TAB PO SCH (08:53)
[2022-12-20] MEDS: HumuLIN 70/30 100 Unit/ ml 10 ml Vial SC SCH (08:54)
== END 2022-12-20 13:00 | disposition home or self-care (01) | DRG 236 ==
LOC: ERS 03:58 → ERHOLD 08:04 → 2SW 13:16 → OBSVTOIN 12-15 09:55 → CCU 12-16 10:22 → 2NO 12-18 21:38
PROVIDERS: ADMIT Internal Medicine; ATTEND Internal Medicine
PROC: 021109W Bypass Coronary Artery, Two Arteries from Aorta with Autologous Venous Tissue, Open Approach (ICD-10-PCS; principal; 2022-12-16)
PROC: 06BP0ZZ Excision of Right Saphenous Vein, Open Approach (ICD-10-PCS; 2022-12-16)
PROC: 02100Z9 Bypass Coronary Artery, One Artery from Left Internal Mammary, Open Approach (ICD-10-PCS; 2022-12-16)
PROC: 02L70CK Occlusion of Left Atrial Appendage with Extraluminal Device, Open Approach (ICD-10-PCS; 2022-12-16)
DX: I25.10 Atherosclerotic heart disease of native coronary artery without angina pectoris (principal); I12.9 Hypertensive chronic kidney disease with stage 1 through stage 4 chronic kidney disease, or unspecified chronic kidney disease; I16.0 Hypertensive urgency; D63.1 Anemia in chronic kidney disease; E78.5 Hyperlipidemia, unspecified; K21.9 Gastro-esophageal reflux disease without esophagitis; Z88.8 Allergy status to other drugs, medicaments and biological substances; Z90.710 Acquired absence of both cervix and uterus; Z90.49 Acquired absence of other specified parts of digestive tract; Z83.3 Family history of diabetes mellitus; Z82.49 Family history of ischemic heart disease and other diseases of the circulatory system; Z79.84 Long term (current) use of oral hypoglycemic drugs; Z79.899 Other long term (current) drug therapy; E66.9 Obesity, unspecified; Z68.32 Body mass index [BMI] 32.0-32.9, adult; Z79.4 Long term (current) use of insulin; N18.2 Chronic kidney disease, stage 2 (mild); E11.22 Type 2 diabetes mellitus with diabetic chronic kidney disease
CPT/HCPCS: 36415; 36416; 36430; 71045; 71275; 78452; 80048; 80053; 82805; 82947; 83880; 84484; 85025; 85610; 85730; 86850; 86900; 86901; 93005; 93010; 93017; 93458; 93798; 94002; 94760; 96374; 96375; 97139; 99152; A4311; A9502; C1751; C1769; G0378; J1644; J1815; J1885; J2001; J2150; J2250; J2270; J2272; J2405; J2440; J2704; J2720; J2785; J3010; J3370; J3490; J7120; P9016; P9045; P9047; Q9967; S0017; S0028

== ENCOUNTER 2023-03-02 20:35 | Emergency (ER) | payer OTHER ==
[2023-03-02 21:56] LABS: #Eosinphils 0.1 thou/uL (0.0-0.7); #Monocytes 0.8 thou/uL (0.11-0.59); #Neutrophils 3.5 thou/uL (1.40-6.50); %Basophils 0.7 % (0.0-1.0); %Eosinophils 0.9 % (0.0-10.0); %Lymphocytes 24.7 % (21.0-51.0); %Monocytes 13.1 % (0.0-10.0); %Neutrophils 60.3 % (42.0-75.0); Hematocrit 33.8 % (36.0-47.0); Hemoglobin 10.8 g/dL (12.0-16.0); Mean Corpuscular Hemoglobin 25.8 pg (27.0-31.0); Mean Corpuscular Volume 80.7 fl (78.0-98.0); Mean Platelet Volume 10.8 fL (7.4-10.4); Platelet Count 405 10x3/uL (130-400); RBC Distribution Width 16.5 % (11.5-14.5); Red Blood Cell (RBC) Count 4.19 mill/uL (4.20-5.40); White Blood Cell (WBC) Count 5.9 10x3/uL (4.8-10.8)
[2023-03-02 22:23] LABS: ALT (SGPT) 7 U/L (8-55); AST (SGOT) 20 U/L (5-34); Albumin 3.7 g/dL (3.4-4.8); Alkaline Phosphatase 69 U/L (40-110); Anion Gap 13 mmol/L (10-20); BUN (Urea Nitrogen) 12 mg/dL (9.8-20.1); Bilirubin, Total 0.3 mg/dL (0.2-1.2); Calc. Creatinine Clearance 0 mL/min (70-130); Calcium 8.6 mg/dL (7.8-10.44); Carbon Dioxide 23 mmol/L (23-31); Chloride 93 mmol/L (98-107); Estimated GFR 78; Globulin 3.3 g/dL (2.4-3.5); Glucose 120 mg/dL (80-115); Potassium 4.3 mmol/L (3.5-5.1); Sodium 125 mmol/L (136-145); Troponin I 0.012 ng/mL (< 0.028)
[2023-03-02] MEDS ORDERED: cefTRIAXone (ROCEPHIN) 1 GM VIAL ONE (22:25)
[2023-03-02] MEDS ORDERED: Acetaminophen 500 MG TAB ONE (22:25)
[2023-03-02] MEDS ORDERED: Ketorolac Tromethamine 30 MG (1 mL) VIAL ONE (22:25)
[2023-03-02] MEDS ORDERED: Sodium Chloride 0.9% 100 ML ONE (22:25)
[2023-03-02] MEDS ORDERED: Azithromycin 250 MG TAB ONE (22:26)
[2023-03-02] MEDS ORDERED: Ondansetron PF 4 MG/2 ML Vial ONE (22:51)
[2023-03-02 22:55] LABS: SARS-CoV-2 NAA Rapid Test DETECTED (NotDetected)
== END 2023-03-03 00:37 | disposition home or self-care (01) ==
LOC: ERS 20:35
DX: U07.1 COVID-19 (principal); J12.82 Pneumonia due to coronavirus disease 2019; E87.1 Hypo-osmolality and hyponatremia; I10 Essential (primary) hypertension; E11.9 Type 2 diabetes mellitus without complications; Z79.84 Long term (current) use of oral hypoglycemic drugs; Z79.4 Long term (current) use of insulin
CPT/HCPCS: 0240U; 71045; 80053; 83605; 83880; 84484; 85025; 93005; 36415; 96365; 96375; J0696; J1885; J2405; J3490

== ENCOUNTER 2023-04-13 08:46 | Outpatient (CLI) | payer OTHER | END 2023-04-13 08:47 | disposition home or self-care (01) | LOC: BICRAD 08:46 | PROVIDERS: ATTEND Family Medicine | DX: R06.89 Other abnormalities of breathing (principal) | CPT/HCPCS: 71046 ==

== ENCOUNTER 2023-05-11 21:03 | Inpatient (IN) | payer OTHER ==
[~2023-05-11 21:03] MED LIST: Iopamidol-370 76% 500 ML MDV (1 ML CHARGE) ONE
[2023-05-11] MEDS ORDERED: Labetalol HCl 100 MG/20 ML VIAL ONE (21:45)
[2023-05-11 21:56] LABS: #Eosinphils 0.5 thou/uL (0.0-0.7); #Monocytes 0.8 thou/uL (0.11-0.59); #Neutrophils 4.2 thou/uL (1.40-6.50); %Basophils 0.5 % (0.0-1.0); %Eosinophils 5.6 % (0.0-10.0); %Lymphocytes 36.6 % (21.0-51.0); Hematocrit 32.6 % (36.0-47.0); Hemoglobin 10.8 g/dL (12.0-16.0); Mean Corpuscular HGB CONC 33.1 g/dL (32.0-36.0); Mean Corpuscular Hemoglobin 29.3 pg (27.0-31.0); Mean Corpuscular Volume 88.3 fl (78.0-98.0); Mean Platelet Volume 10.3 fL (7.4-10.4); Platelet Count 354 10x3/uL (130-400); RBC Distribution Width 20.3 % (11.5-14.5); Red Blood Cell (RBC) Count 3.69 mill/uL (4.20-5.40); White Blood Cell (WBC) Count 8.7 10x3/uL (4.8-10.8)
[2023-05-11 22:51] LABS: Anion Gap 11 mmol/L (10-20); BUN (Urea Nitrogen) 15 mg/dL (9.8-20.1); Calc. Creatinine Clearance 0 mL/min (70-130); Carbon Dioxide 26 mmol/L (23-31); Chloride 102 mmol/L (98-107); Sodium 135 mmol/L (136-145)
[2023-05-11 22:52] LABS: ALT (SGPT) 8 U/L (8-55); AST (SGOT) 19 U/L (5-34); Albumin 3.9 g/dL (3.4-4.8); Alkaline Phosphatase 96 U/L (40-110); Bilirubin, Total 0.2 mg/dL (0.2-1.2); Calcium 9.3 mg/dL (7.8-10.44); Estimated GFR 79; Globulin 3.1 g/dL (2.4-3.5); Glucose 145 mg/dL (80-115)
[2023-05-11 22:53] LABS: Troponin I Less than 0.010 ng/mL (< 0.028)
[2023-05-11] MEDS ORDERED: niCARdipine 25 MG/10 ML SDV ONE (23:28)
[2023-05-11 23:37] LABS: Magnesium 1.8 mg/dL (1.6-2.6)
[2023-05-12] MEDS ORDERED: Ondansetron PF 4 MG/2 ML Vial IVP PRN (01:15)
[2023-05-12 01:17] VITALS: BMI 30.6
[2023-05-12] MEDS ORDERED: HumaLOG 300 UNITS/3 ML VIAL SC PRN (01:24)
[2023-05-12] MEDS ORDERED: Dextrose 5% in Water 1,000 ML IV PRN (01:24)
[2023-05-12] MEDS ORDERED: Dextrose 50% Abboject 50 ML SYRINGE SLOW IVP PRN (01:24)
[2023-05-12] MEDS ORDERED: Glucagon 1 MG/ML KIT IM PRN (01:24)
[2023-05-12] MEDS ORDERED: niCARdipine 25 MG in Sodium Chloride 0.9% 250 ML 250 ML IVPB SCH (01:30)
[2023-05-12] MEDS ORDERED: niCARdipine 25 MG/10 ML SDV ONE (03:01)
[2023-05-12 04:14] LABS: #Basophils 0.1 thou/uL (0.0-0.2); #Eosinphils 0.3 thou/uL (0.0-0.7); #Monocytes 0.6 thou/uL (0.11-0.59); #Neutrophils 5.6 thou/uL (1.40-6.50); %Basophils 0.6 % (0.0-1.0); %Eosinophils 3.9 % (0.0-10.0); %Lymphocytes 22.9 % (21.0-51.0); %Monocytes 6.9 % (0.0-10.0); %Neutrophils 65.4 % (42.0-75.0); Hematocrit 35.5 % (36.0-47.0); Hemoglobin 11.5 g/dL (12.0-16.0); Mean Corpuscular HGB CONC 32.4 g/dL (32.0-36.0); Mean Corpuscular Hemoglobin 28.8 pg (27.0-31.0); Mean Corpuscular Volume 88.8 fl (78.0-98.0); Platelet Count 232 10x3/uL (130-400); RBC Distribution Width 20.4 % (11.5-14.5); White Blood Cell (WBC) Count 8.6 10x3/uL (4.8-10.8)
[2023-05-12 04:27] LABS: Anion Gap 13 mmol/L (10-20); BUN (Urea Nitrogen) 13 mg/dL (9.8-20.1); Calc. Creatinine Clearance 83 mL/min (70-130); Calcium 9.2 mg/dL (7.8-10.44); Carbon Dioxide 24 mmol/L (23-31); Cardiac Risk 3.1 (Less than 4.5); Chloride 104 mmol/L (98-107); Cholesterol 156 mg/dl (< 200 Desired); Estimated GFR 84; Glucose 154 mg/dL (80-115); HDL Cholesterol 50 mg/dL (>60 Neg Risk); LDL Cholesterol, Calculated 91 mg/dL; Potassium 3.9 mmol/L (3.5-5.1); Sodium 137 mmol/L (136-145); Triglycerides 73 mg/dL (Less than 150)
[2023-05-12] MEDS ORDERED: Enoxaparin 40 MG (0.4 mL) SYRINGE ONE (10:07)
[2023-05-12] MEDS ORDERED: Aspirin 81 mg Enteric Coated Tablet ONE (10:07)
[2023-05-12] MEDS ORDERED: Losartan 25 MG TAB ONE (11:33)
[2023-05-12] MEDS: Enoxaparin 40 MG (0.4 mL) SYRINGE SC SCH (11:41)
[2023-05-12] MEDS: Aspirin 81 mg Enteric Coated Tablet PO SCH (11:41)
[2023-05-12] MEDS: Losartan 25 MG TAB PO SCH (11:41)
[2023-05-12] MEDS: Atenolol 50 MG TAB PO SCH (13:55)
[2023-05-12] MEDS: HumaLOG 300 UNITS/3 ML VIAL SC PRN (16:49)
[2023-05-12] MEDS: hydrALAZINE 25 MG TAB PO SCH ×2 (16:50→21:08)
[2023-05-12] MEDS: Atorvastatin Calcium 40 MG TAB PO SCH (21:08)
[2023-05-13 04:02] LABS: #Basophils 0.03 10x3/uL (0.0-0.2); %Basophils 0.4 % (0.0-1.0); %Eosinophils 5.7 % (0.0-10.0); %Monocytes 8.5 % (0.0-10.0); %Neutrophils 58.1 % (42.0-75.0); Hematocrit 33.8 % (36.0-47.0); Hemoglobin 11.1 g/dL (12.0-16.0); Mean Corpuscular HGB CONC 32.8 g/dL (32.0-36.0); Mean Corpuscular Hemoglobin 29.2 pg (27.0-31.0); Mean Corpuscular Volume 88.9 fL (78.0-98.0); Mean Platelet Volume 10.7 fL (7.4-10.4); Platelet Count 341 10x3/uL (130-400); RBC Distribution Width 20.5 % (11.5-14.5)
[2023-05-13 05:02] LABS: Anion Gap 12 mmol/L (10-20); BUN (Urea Nitrogen) 15 mg/dL (9.8-20.1); Calc. Creatinine Clearance 71 mL/min (70-130); Calcium 9.5 mg/dL (7.8-10.44); Carbon Dioxide 25 mmol/L (23-31); Chloride 103 mmol/L (98-107); Estimated GFR 70; Glucose 198 mg/dL (80-115); Potassium 4.2 mmol/L (3.5-5.1); Sodium 136 mmol/L (136-145)
[2023-05-13 07:43] VITALS: TEMP 97.2
[2023-05-13] MEDS ORDERED: Non-Formulary Item 1 EACH (Famotidine [Pepcid] 40 MG Tablet) PO SCH (09:00)
[2023-05-13] MEDS: HumuLIN 70/30 100 Unit/ml 10 ml Vial SC SCH (12:09)
[2023-05-13 15:23] VITALS: BP 142/65
== END 2023-05-13 15:35 | disposition home or self-care (01) | DRG 305 ==
LOC: ERS 21:03 → ERHOLD 05-12 00:40 → 2NO 05-12 14:46
PROVIDERS: ADMIT Internal Medicine; ATTEND Internal Medicine
DX: I16.0 Hypertensive urgency (principal); I25.10 Atherosclerotic heart disease of native coronary artery without angina pectoris; K21.9 Gastro-esophageal reflux disease without esophagitis; E78.5 Hyperlipidemia, unspecified; I12.9 Hypertensive chronic kidney disease with stage 1 through stage 4 chronic kidney disease, or unspecified chronic kidney disease; N18.2 Chronic kidney disease, stage 2 (mild); E11.22 Type 2 diabetes mellitus with diabetic chronic kidney disease; Z66 Do not resuscitate; Z88.0 Allergy status to penicillin; Z79.899 Other long term (current) drug therapy; Z79.4 Long term (current) use of insulin; Z79.82 Long term (current) use of aspirin; Z95.1 Presence of aortocoronary bypass graft; Z82.49 Family history of ischemic heart disease and other diseases of the circulatory system
CPT/HCPCS: 36415; 36416; 70496; 70498; 71045; 80048; 80053; 80061; 83735; 83880; 84484; 85025; 93005; 94760; J1650; J1815; Q9967

== ENCOUNTER 2023-08-25 08:05 | Outpatient (CLI) | payer OTHER | END 2023-08-25 08:06 | disposition home or self-care (01) | LOC: BICMAMMO 08:05 | PROVIDERS: ATTEND Family Medicine | DX: Z13.820 Encounter for screening for osteoporosis (principal); M81.0 Age-related osteoporosis without current pathological fracture; M85.852 Other specified disorders of bone density and structure, left thigh; Z78.0 Asymptomatic menopausal state | CPT/HCPCS: 77080 ==

== ENCOUNTER 2023-12-06 16:01 | Emergency (ER) | payer OTHER ==
[2023-12-06] MEDS ORDERED: Morphine 4 MG/ML VIAL ONE (16:58)
== END 2023-12-06 18:45 | disposition home or self-care (01) ==
LOC: ERS 16:01
DX: M19.011 Primary osteoarthritis, right shoulder (principal); I10 Essential (primary) hypertension; E11.9 Type 2 diabetes mellitus without complications; I25.810 Atherosclerosis of coronary artery bypass graft(s) without angina pectoris; Z95.1 Presence of aortocoronary bypass graft
CPT/HCPCS: 73030; 93005; 96372; 99283; J2272